=== PATIENT | female | born 1945 | race Caucasian/White ===

== ENCOUNTER 2017-05-12 13:31 | Observation (INO) | payer MEDICARE, SELFPAY ==
[2017-05-12 13:32] VITALS: BP 148/78; PULSE 83; RESP 16; TEMP 37.1; O2SAT 95; BMI 34.0
--- NOTE | 2017-05-12 13:58 | XR_ITS ---
XR chest portable HISTORY: ITS.REASON: CHEST PAIN ORDERING PHYSICIAN: Bryan Quintanilla MD PATIENT AGE: 71 years COMPARISON: 01/12/2017 FINDINGS: Mild cardiomegaly without failure. Chronic pulmonary parenchymal changes are once again noted. There is a small left pleural effusion. Increasing density is present in the left midlung suggesting increasing consolidation or volume loss in the lingula. Chest CT may be of further value. Right lung is clear. IMPRESSION: 1. Increasing consolidation/volume loss in the left midlung with persistent left-sided pleural effusion and/or elevated hemidiaphragm. Consider chest CT for more thorough evaluation. 2. Cardiomegaly.
--- NOTE | 2017-05-12 14:03 | HMH.EDGENADL ---
ED Disposition Clinical Impression: Chest pain, Cardiomegaly, Pleural effusion, left Disposition: Still a Patient Condition on Discharge: Good - Critical Care Critical Care Time: No Attestation: On , the high probability of a clinically significant, sudden or life threatening deterioration of the following system(s) required my full and direct attention, intervention and personal management. The time I documented below is in addition to time spent performing reported procedures but includes the following listed in this critical care notation. Medical Decision Making - Medical Records Medical records reviewed: Yes: I reviewed the patient's medical records. Vital Signs: 05/12/17 13:32 05/12/17 14:32 Temperature 98.7 F 98.5 F Temperature Source Oral Oral Pulse Rate [Left Brachial] 83 93 H Respiratory Rate 16 14 Blood Pressure [Right Arm] 148/78 111/69 Blood Pressure Mean [Right Arm] 101 83 Blood Pressure Source [Right Arm] Automatic Cuff Automatic Cuff Blood Pressure Position [Right Arm] Sitting Sitting 02 Sat by Pulse Oximetry 95 95 Oxygen Delivery Method Room Air Room Air - Lab Data Lab Results 05/12/17 13:50: WBC 14.1 H, RBC 4.34, Hgb 11.6 L, Hct 36.9 L, MCV 85.0, MCH 26.7 L, MCHC 31.4 L, RDW 14.7, Plt Count 393, MPV 7.7, Neut % (Auto) 71.7, Lymph % (Auto) 20.2, [place] % (Auto) 7.0, Eos % (Auto) 0.7, Baso % (Auto) 0.4, Neut # (Auto) 10.1 H, Lymph # (Auto) 2.9, [place] # (Auto) 1.0, Eos # (Auto) 0.1, Baso # (Auto) 0.1 05/12/17 13:50: Sodium 142, Potassium 3.6, Chloride 108 H, Carbon Dioxide 26, Anion Gap 11.6, BUN 13, Creatinine 0.75, Estimated Creat Clear 68, Estimated GFR 77, Est GFR ( Amer) 93, Glucose 106, Calcium 9.4, Total Bilirubin 0.2, AST 12 L, ALT 21, Alkaline Phosphatase 73, Total Creatine Kinase 47, CK-MB (CK-2) < 0.5, CK-MB (CK-2) Rel Index 1.1, Troponin I < 0.02, Total Protein 7.7, Albumin 2.7 L, Globulin 5.0 H, Albumin/Globulin Ratio 0.5 L 05/12/17 13:50: B-Natriuretic Peptide 112 H Result diagrams: 05/12/17 13:50 05/12/17 13:50 Orders (Tests/Meds): ED MEDICATIONS Generic Name Dose Route Start Last Admin Trade Name Nancie PRN Reason Stop Dose Admin Aspirin 81 mg 05/13/17 09:00 Aspirin 81mg Chewable Tablet PO 06/12/17 08:59 DAILY [facility] Atorvastatin Calcium 40 mg 05/12/17 21:00 Lipitor 40mg Tablet PO 06/11/17 20:59 HS MARY JANE Bisoprolol Fumarate 5 mg 05/13/17 09:00 Zebeta 5mg Tablet PO 06/12/17 08:59 DAILY MARY JANE Clopidogrel Bisulfate 75 mg 05/12/17 15:06 Plavix 75mg Tablet PO 05/12/17 15:07 ONCE ONE Sodium Chloride 1,000 mls @ 999 mls/hr 05/12/17 14:45 05/12/17 14:36 Sod Chloride 0.9% 1000ml Bag IV 05/12/17 15:45 999 mls/hr .Q1H1M MARY JANE Administration Lisinopril 20 mg 05/13/17 09:00 Zestril 20mg Tab PO 06/12/17 08:59 DAILY [facility] Nitroglycerin 0.5 gm 05/12/17 15:15 Nitroglycerin 1 Inch Oint Udp TD 06/11/17 15:14 Q6H MARY JANE Discontinued Medications Generic Name Dose Route Start Last Admin Trade Name Nancie PRN Reason Stop Dose Admin Belladonna Alkaloids 60 ml 05/12/17 14:30 05/12/17 14:36 Gi Cocktail 60ml Udc PO 05/12/17 14:31 60 ml ONCE ONE Administration Nitroglycerin 0.4 mg 05/12/17 14:18 05/12/17 14:19 Nitrostat 0.4mg Sl Tablet SL 05/12/17 14:19 0.4 mg ONCE ONE Administration Nitroglycerin 0.4 mg 05/12/17 14:30 05/12/17 14:36 Nitrostat 0.4mg Sl Tablet SL 05/12/17 14:31 0.4 mg ONCE ONE Administration - Radiology Data #1 Image(s): Chest Image Reviewed: Yes I reviewed the patient's radiology results, Yes I have reviewed radiologist's interpretation Preliminary Findings: Abnormal - ECG Data Tracing #1 Normal sinus rhythm 83/min possible [address] elevation in lead III and aVF in comparison to an EKG from December [address] Woods seeing the laundry pricing clerk presented and after evaluation obtained a stat echo and he determined
--- NOTE | 2017-05-12 14:10 | PC.NURSE ---
WAITING TREASURER FROM
--- NOTE | 2017-05-12 14:13 | PC.NURSE ---
SPEAKING WITH TESSIE ULLOA
--- NOTE | 2017-05-12 14:21 | PC.NURSE ---
KATHLEEN MURPHY AT BEDSIDE
--- NOTE | 2017-05-12 14:21 | PC.NURSE ---
CALLED AND ADVISED THEM TESSIE ULLOA REQUESTED ECHO ON PATIENT
[2017-05-12 14:24] LABS: Basophils # 0.1 K/mm3 (0-0.2); Basophils % 0.4 % (0.1-2.0); Eosinophils # 0.1 K/mm3 (0.0-0.4); Eosinophils % 0.7 % (0.1-12.0); Hematocrit 36.9 % (37.0-47.0); Hemoglobin 11.6 g/dL (12.2-16.2); Lymphocytes # 2.9 K/mm3 (0.7-4.5); Lymphocytes % 20.2 K/mm3 (10-50); Mean Corpuscular HGB Conc 31.4 g/dL (31.8-35.4); Mean Corpuscular Hemoglobin 26.7 pg (27.0-31.2); Mean Platelet Volume 7.7 fl (7.4-10.4); Neutrophils # 10.1 K/mm3 (1.8-7.8); Neutrophils % 71.7 % (37.0-80.0); Platelet Count 393 K/mm3 (142-424); Red Blood Count 4.34 M/mm3 (4.20-5.40); Red Cell Distribution Width 14.7 % (11.5-17.5); White Blood Count 14.1 K/mm3 (4.8-10.8)
--- NOTE | 2017-05-12 14:24 | CA_ITS ---
PROCEDURE: 2-D M-mode and color Doppler study INDICATIONS FOR THE TEST: Chest painx COPD Heart Murmur Tobacco Smokingx Palpitations Fatigue Syncope Edemax Hypertension Diabetes Mellitusx Rheumatic Fever [id number] Obesity Hyperlipidemiax Family History HD Additional History CAD PATIENT INFORMATION HEIGHT: 61'' WEIGHT: 180 GENDER: Female B/P:148/78 2-D/M-MODE INTERPRETATION: 2-D MEASUREMENTS OBSERVED VALUES IN CMS Right Ventricular Dimension (RVDd) 3.2 Interventricular Septum (Thickness)(IVsd) 2.2 Left Ventricular Internal Dimensions(LVIDd) 4.4 Left Ventricular Posterior Wall (Thickness)(LVPWd) 1.8 Aortic Root 3.3 Aortic Cusp Separation 1.6 Left Atrial Dimensions (LAD) 3.5 2D 1. Technically difficult study because of the patient's factor and poor acoustic windows. 2. Left atrium is mildly enlarged, left ventricle is normal size, there is moderate concentric left ventricular hypertrophy present, visually estimated ejection fraction 55% with no obvious regional wall motion abnormality, endocardial surfaces are poorly visualized. 3. The right atrium and right ventricle are mildly enlarged with normal contractility. 4. The aortic valve is minimally thickened and fibrosed. 5. The mitral and tricuspid valve leaflets are minimally thickened. 6. The pulmonic valve is poorly visualized. 7. No significant pericardial effusion noted. DOPPLER INTERROGATION: Doppler interrogation of the aortic, mitral and tricuspid valvular presence of mild mitral and tricuspid regurgitation, tricuspid and jet velocity is insufficient for calculation of the right ventricular systolic pressure, grade 1 diastolic dysfunction seen with tissue Doppler evidence of raised left atrial pressure. CONCLUSION: 1. Technically difficult study because of the patient's factor and poor acoustic windows. 2. Mildly enlarged left atrium, normal left ventricular size, moderate concentric left ventricular hypertrophy, visually estimated ejection fraction 55% with no obvious regional wall motion abnormality, endocardial surface of poorly visualized. Grade 1 diastolic dysfunction seen with tissue Doppler evidence of raised left atrial pressure. 3. Mild mitral and tricuspid regurgitation. 4. Mildly enlarged right ventricle with normal contractility. 5. No significant pericardial effusion noted.
[2017-05-12 14:32] VITALS: BP 111/69; PULSE 93; RESP 14; TEMP 36.9; O2SAT 95
[2017-05-12 14:34] LABS: Alanine Aminotransferase 21 U/L (12-78); Albumin Level 2.7 gm/dL (3.4-5.0); Albumin/Globulin Ratio 0.5 (1.1-1.8); Alkaline Phosphatase 73 U/L (46-116); Anion Gap 11.6 mEq/L (5-15); Aspartate Amino Transferase 12 U/L (15-37); Bilirubin,Total 0.2 mg/dL (0.2-1.0); Blood Urea Nitrogen 13 mg/dL (7-18); CKMB Relative Index 1.1 U/L (0-4.0); Calcium 9.4 mg/dL (8.5-10.1); Carbon Dioxide 26 mmol/L (21.0-32.0); Chloride 108 mmol/L (98-107); Creatine Kinase 47 U/L (26-192); Creatine Kinase MB < 0.5 mg/ml (0.0-3.6); Creatinine Clearance Estimated 68 mL/min (0-300); Creatinine,Serum 0.75 mg/dL (0.55-1.02); Estimated Glomerular Filt Rate 77 ml/min (>60); GFR (African American) 93 ML/MIN (>60); Glucose 106 mg/dL (74-106); Potassium 3.6 mmoL/L (3.5-5.1); Sodium 142 mmol/L (136-145); Total Protein,Serum 7.7 gm/dL (6.4-8.2); Troponin I < 0.02 ng/ml (0.00-0.06)
--- NOTE | 2017-05-12 14:55 | HMH.CARDCON2 ---
History of Present Illness Consult date: 05/12/17 Consult reason: chest pain Chief complaint: chest pain History of present illness: 71-year-old white female with known history of coronary artery disease and previous right coronary artery stent placed in June 2016 presented to the emergency department for 1 week of recurrent substernal chest pain and soreness with radiation to the left shoulder and arm. Patient has a history of fibromyalgia which complicates her clinical picture. She has been taking ibuprofen about 800 mg 3 times a day over the last week with symptoms worsening. She has a history of anemia, tobacco use, diabetes and hyperlipidemia. Patient's EKG upon arrival to the ER was noted to be slightly abnormal with slight ST elevation of less than 1 mm in the inferior leads but not consistently elevated from beat to beat. Radiology was consulted for evaluation. Patient was given sublingual nitroglycerin with some improvement in symptoms. A second sublingual nitroglycerin along with a GI cocktail was given with near resolution of symptoms. Preliminary echocardiogram performed in the ER shows normal wall motion abnormality official report is pending. Patient relates decreased activity recently with exertional shortness of breath on top of the chest discomfort. She has missed her last 2 appointments with our office. Her family doctor is Dr. Hoffman. Review of Systems - *Cardiovascular Reports chest pain, Reports chest pain at rest, Reports chest pain with activity, Reports shortness of breath with activity - *Respiratory Reports shortness of breath with activity - *Gastrointestinal Reports abdominal pain - *Genitourinary Reports blood in urine [facility] History Medical History: Reports:: Coronary Artery Disease, Diabetes Mellitus Type 2, Gastroesophageal Reflux Disease, Hyperlipidemia, Hypertension Denies:: Cancer, Diabetes Mellitus Type 1, MRSA Other Medical History: Reports: Arthritis Laterality Cases: Left: Lumpectomy Other Surgeries: Yes: Hysterectomy-Total, Other (Gallbladder, Bladder repair, ). No: Pacemaker Amputation: No Fractures: No - *Social History Smoking Status: Current every day smoker Tobacco Type: cigarettes # Packs/Day (cigarettes): 1 Alcohol Intake: never - Psychiatric History Expresses thoughts of harming self/others: None Suicide Plan Description: No Plan Meds Home Medications Medication Instructions Recorded Confirmed Type aspirin 81 mg tablet,delayed 81 mg PO QDAY 05/02/17 05/12/17 History release atorvastatin 40 mg tablet 40 mg PO QDAY 05/02/17 05/12/17 History bisoprolol fumarate 5 mg tablet 5 mg PO QDAY 05/02/17 05/12/17 History clopidogrel 75 mg tablet 75 mg PO QDAY 05/02/17 05/12/17 History duloxetine 60 mg capsule,delayed 60 mg PO QDAY 05/02/17 05/12/17 History release glyburide 5 mg tablet 5 mg PO QDAY 05/02/17 05/12/17 History lisinopril 20 mg tablet 20 mg PO QDAY 05/02/17 05/12/17 History omega-3 fatty acids 1,000 mg 1,000 mg PO QDAY 05/02/17 05/12/17 History capsule vitamin B complex tablet 1 tab PO QDAY 05/02/17 05/12/17 History Ascorbic Acid [Vitamin C] 1,000 mg PO DAILY 05/12/17 05/12/17 History Ergocalciferol (Vitamin D2) 400 unit PO DAILY 05/12/17 05/12/17 History [Vitamin D] Allergies Allergy/AdvReac Type Severity Reaction Status Date / Time No Known Allergies Allergy Verified 05/12/17 13:45 Exam Vital signs and Labs for Last 24 Hours: Temp Pulse Resp BP Pulse Ox 98.5 F 93 H 14 111/69 95 05/12/17 14:32 05/12/17 14:32 05/12/17 14:32 05/12/17 14:32 05/12/17 14:32 Laboratory Results - last 24 hr 05/12/17 13:50: WBC 14.1 H, RBC 4.34, Hgb 11.6 L, Hct 36.9 L, MCV 85.0, MCH 26.7 L, MCHC 31.4 L, RDW 14.7, Plt Count 393, MPV 7.7, Neut % (Auto) 71.7, Lymph % (Auto) 20.2, Mcdonald % (Auto) 7.0, Eos % (Auto) 0.7, Baso % (Auto) 0.4, Neut # (Auto) 10.1 H, Lymph # (Auto) 2.9, Mcdonald # (Auto) 1.0, Eos # (Auto) 0.1, Baso # (Auto) 0.1
--- NOTE | 2017-05-12 14:59 | P.CONS_ITS ---
History of Present Illness Consult date: 05/12/17 Consult reason: chest pain Chief complaint: chest pain History of present illness: 71-year-old white female with known history of coronary artery disease and previous right coronary artery stent placed in June 2016 presented to the emergency department for 1 week of recurrent substernal chest pain and soreness with radiation to the left shoulder and arm. Patient has a history of fibromyalgia which complicates her clinical picture. She has been taking ibuprofen about 800 mg 3 times a day over the last week with symptoms worsening. She has a history of anemia, tobacco use, diabetes and hyperlipidemia. Patient's EKG upon arrival to the ER was noted to be slightly abnormal with slight ST elevation of less than 1 mm in the inferior leads but not consistently elevated from beat to beat. Radiology was consulted for evaluation. Patient was given sublingual nitroglycerin with some improvement in symptoms. A second sublingual nitroglycerin along with a GI cocktail was given with near resolution of symptoms. Preliminary echocardiogram performed in the ER shows normal wall motion abnormality official report is pending. Patient relates decreased activity recently with exertional shortness of breath on top of the chest discomfort. She has missed her last 2 appointments with our office. Her family doctor is Dr. Hoffman. Review of Systems - *Cardiovascular Reports chest pain, Reports chest pain at rest, Reports chest pain with activity , Reports shortness of breath with activity - *Respiratory Reports shortness of breath with activity - *Gastrointestinal Reports abdominal pain - *Genitourinary Reports blood in urine [facility] History Medical History: Reports:: Coronary Artery Disease, Diabetes Mellitus Type 2, Gastroesophageal Reflux Disease, Hyperlipidemia, Hypertension Denies:: Cancer, Diabetes Mellitus Type 1, MRSA Other Medical History: Reports: Arthritis Laterality Cases: Left: Lumpectomy Other Surgeries: Yes: Hysterectomy-Total, Other (Gallbladder, Bladder repair, ) . No: Pacemaker Amputation: No Fractures: No - *Social History Smoking Status: Current every day smoker Tobacco Type: cigarettes # Packs/Day (cigarettes): 1 Alcohol Intake: never - Psychiatric History Expresses thoughts of harming self/others: None Suicide Plan Description: No Plan Meds Home Medications Medication Instructions Recorded Confirmed Type aspirin 81 mg tablet,delayed 81 mg PO QDAY 05/02/17 05/12/17 History release atorvastatin 40 mg tablet 40 mg PO QDAY 05/02/17 05/12/17 History bisoprolol fumarate 5 mg tablet 5 mg PO QDAY 05/02/17 05/12/17 History clopidogrel 75 mg tablet 75 mg PO QDAY 05/02/17 05/12/17 History duloxetine 60 mg capsule,delayed 60 mg PO QDAY 05/02/17 05/12/17 History release glyburide 5 mg tablet 5 mg PO QDAY 05/02/17 05/12/17 History lisinopril 20 mg tablet 20 mg PO QDAY 05/02/17 05/12/17 History omega-3 fatty acids 1,000 mg 1,000 mg PO QDAY 05/02/17 05/12/17 History capsule vitamin B complex tablet 1 tab PO QDAY 05/02/17 05/12/17 History Ascorbic Acid [Vitamin C] 1,000 mg PO DAILY 05/12/17 05/12/17 History Ergocalciferol (Vitamin D2) 400 unit PO DAILY 05/12/17 05/12/17 History [Vitamin D] Allergies Allergy/AdvReac Type Severity Reaction Status Date / Time No Known Allergies Allergy Verified 05/12/17 13:45 Exam Vital signs and Labs for Last 24 Hours:
[2017-05-12 17:00] VITALS: BP 108/54; PULSE 90; RESP 14; O2SAT 92
[2017-05-12 18:23] VITALS: BMI 34.7
[2017-05-12 18:33] VITALS: BP 118/54; PULSE 54; RESP 16; TEMP 37.2; O2SAT 98
--- NOTE | 2017-05-12 18:35 | PC.NURSE ---
PT CAME TO FLOOR VIA W/C. PT HAS NO COMPLAINTS AT THIS TIME, SITTING IN CHAIR IN ROOM. WILL CONTINUE TO MONITOR.
[2017-05-12 19:11] VITALS: BP 134/72; PULSE 97; RESP 20; TEMP 37.1; O2SAT 92
[2017-05-12 20:17] LABS: Troponin I < 0.02 ng/ml (0.00-0.06)
[2017-05-13] VITALS (11 sets, daily range): BP systolic 101–128; BP diastolic 62–76; PULSE 80–106; RESP 16–24; TEMP 36.6–37.3; O2SAT 93–96
--- NOTE | 2017-05-13 | IR_ITS ---
CARDIAC CATHETERIZATION DATE OF CATHETERIZATION:05/13/2017 10:34 AM PROCEDURES: 1. Left heart catheterization 2. Left ventriculogram 3. Selective coronary angiogram INDICATION FOR TEST: 1. Unstable angina 2. Acute care admission to the hospital for acute coronary syndrome Informed consent was obtained prior to the procedure. COMPLICATIONS: None ESTIMATED BLOOD LOSS: Less than 10 ml. TECHNIQUE: One percent lidocaine used to anesthetize the right anterior aspect of the wrist. The right radial artery was accessed via the Seldinger technique. A 6 Indonesian sheath was placed in the right radial artery. 2.5 mg of verapamil, 800 mcg of nitroglycerin and 5000 U Heparin were given through the arterial sheath. The trap catheter was also used to perform left heart catheterization and left ventriculography. At the end of the procedure the patient was transferred to the post-op holding area in stable condition for arterial sheath removal. ANGIOGRAPHIC RESULTS: 1. The left main artery normal 2. The left anterior descending artery has proximal 10% stenosis with mid vessel concentric 30% nonflow limiting stenoses 3. The circumflex artery is nondominant with mild luminal irregularities 4. The right coronary artery is a large dominant vessel and has mild vascular ectasia throughout the proximal mid and distal segment. There is no focal stenosis in the proximal or mid segment greater than 20%. Distally there is a 30% eccentric stenosis. Galdino current is identified distally due to the vascular ectasia 5. The BAIG ventriculogram reveals normal 65% 6. The left ventricular end-diastolic pressure elevated at 30 mmHg IMPRESSION: 1. Mild nonflow limiting coronary artery disease as described above 2. Clinically insignificant vascular ectasia 3. Normal ejection fraction 4. Moderate to severe elevated LVEDP consistent with diastolic dysfunction PLAN: 1. Medical management 2. Diuretics will benefit patient in order to decrease EDP 3. Risk factor modification
--- NOTE | 2017-05-13 00:22 | PC.NURSE ---
KATHLEEN KURTZ CALLED TO CHECK ON PT, ORDERS RECEIVED FOR NITORPASTE HALF INCH EVERY 6 HOURS.
--- NOTE | 2017-05-13 04:40 | PC.NURSE ---
PT WAS EXTREMELY RESTLESS, BECOME MORE SOB. CRACKLES NOTED ALL LOBES, FAINTLY. PLACED PT ON 2L PER NC DUE TO SATS BEING [address] PARRA, RECEIVED ORDERS FOR 40MG LASIX, O2, AND APPAREL CUTTER. NOTIFIED AT 2350. DIURESED 1,000ML PLUS ONE OUTPUT NOT MEASURED DUE TO PT MISSING SPEICI HAT. O2 SATS UP ABOVE 90 PERCENT. PT EVENTUALLY FELL OFF TO SLEEP. PT AWAKE THIS AM STATING SHE FELT MUCH BETTER. RESPIRATIONS EVEN AND UNLABORED ON RA. NSR ON TELEMETRY. PT KEPT NPO FOR HEART CATH TODAY.
--- NOTE | 2017-05-13 07:30 | P.CONPHA_ITS ---
[facility] Pharmacy VTE Monitoring - Patient Demographics Admission date: 05/12/17 Report Date: 05/13/17 Time: 07:29 Allergies/Adverse Reactions: No Known Allergies Allergy (Verified 05/12/17 13:45) Height: 1.55 m Weight: 82.667 kg Patient Problems: Current Active Problems Chest pain (Acute) Unstable angina pectoris (Acute) Carotid artery disease (Acute) Hypertension (Acute) Hyperlipidemia associated with type 2 diabetes mellitus (Acute) Tobacco use disorder, continuous (Acute) Anemia (Acute) Cardiomegaly (Acute) Pleural effusion, left (Acute) - VTE Risk Labs: VTE Related Lab Results Hgb 11.6 g/dL (12.2-16.2) L 05/12/17 13:50 Hct 36.9 % (37.0-47.0) L 05/12/17 13:50 Plt Count 393 K/mm3 (142-424) 05/12/17 13:50 BUN 13 mg/dL (7-18) 05/12/17 13:50 Creatinine 0.75 mg/dL (0.55-1.02) 05/12/17 13:50 Estimated Creat Clear 68 mL/min (0-300) 05/12/17 13:50 Was VTE Risk Assessment Performed: Yes VTE Risk Level: Very Low Risk - Prophylaxis VTE Prophylaxis Ordered?: Yes Types of VTE Prophylaxis: TEDS Knee High Location of Applied Device: Bilateral Lower Extremeties - VTE Diagnosis Confirmed Treatment or plan recommended: Continue Current Treatment
--- NOTE | 2017-05-13 08:14 | CT_ITS ---
CT chest wo con HISTORY: Increasing consolidation in the left mid lung with effusion, abnormal chest x-ray ITS.REASON: LLL infiltrate; pleural effusion ORDERING PHYSICIAN: Mehul Heredia MD PATIENT AGE: 71 years TECHNIQUE: Axial images obtained. Sagittal and coronal reformatted images are also generated and reviewed. CONTRAST: None COMPARISON: CT scan of 09/30/2016 FINDINGS: No evidence of aortic aneurysm. There are scattered small lymph nodes in the mediastinum. There is severe coronary artery calcification. There is mild thickening of the pericardium which is developed since a previous exam. There is a small left pleural effusion which is developed since the previous study. There is increasing opacification within the inferior aspect of the left upper lobe and the lingula suggesting increasing consolidation and/or volume loss. Pulmonary mass felt to be less likely based on appearance but not totally excluded bronchoscopy may be a for further evaluation. Mild centrilobular emphysematous changes are present. There are atelectatic changes in the lung bases. There is mild ectasia of the distal thoracic aorta. IMPRESSION: 1. Increasing opacification of the inferior aspect of the left upper lobe and in the lingula suggesting increasing consolidation and/or volume loss. Pulmonary mass not entirely excluded. Consider bronchoscopy for further evaluation. 2. Small left pleural effusion. 3. Centrilobular emphysema. 4. Coronary artery disease with thickening of the pericardium which has developed since the previous exam
--- NOTE | 2017-05-13 09:09 | HMH.HP ---
*Admission Date: 05/12/17 <Shana Carreon 05/13/17 09:20> *Chief complaint: chest pain and SOA <Shana Carreon 05/13/17 09:20> *History of present illness: Ms Du is a 71-year-old white female with known history of coronary artery disease and previous right coronary artery stent placed in June 2016 who presented to the emergency department for 1 week of recurrent substernal chest pain and soreness with radiation to the left shoulder and arm. Patient has a history of fibromyalgia which complicates her clinical picture. She has been taking ibuprofen about 800 mg 3 times a day over the last week with symptoms worsening. She has a history of anemia, tobacco use, diabetes and hyperlipidemia. Patient's EKG upon arrival to the ER was noted to be slightly abnormal with slight ST elevation of less than 1 mm in the inferior leads but not consistently elevated from beat to beat. Cardiology was consulted for evaluation. The patient was given sublingual nitroglycerin with some improvement in symptoms. She was given a GI cocktail as well and a dose of lasix. She states the lasix is what caused her CP and SOA to resolve. Her echocardiogram showed an EF of 55%. According to cardiology, she had missed her last 2 appointments with them. Her family doctor is Dr. Hoffman. This am she is feeling much better and her SOA and CP has resolved and not returned. She is scheduled for a heart cath today. <Shana Carreon 05/13/17 09:20> [facility] History Medical History: Reports:: Coronary Artery Disease, Diabetes Mellitus Type 2, Gastroesophageal Reflux Disease(GERD), Hyperlipidemia, Hypertension Denies:: Cancer, Diabetes Mellitus Type 1, MRSA <Shana Carreon 05/13/17 09:20> Other Medical History: Reports: Arthritis <Shana Carreon 05/13/17 09:20> Laterality Cases: Left: Lumpectomy <Shana Carreon 05/13/17 09:20> Other Surgeries: Yes: Hysterectomy-Total, Other (Gallbladder, Bladder repair, ). No: Pacemaker <Shana Carreon 05/13/17 09:20> Amputation: No <Shana Carreon 05/13/17 09:20> Fractures: No <Shana Carreon 05/13/17 09:20> - *Social History Smoking Status: Current every day smoker <VelmaShana 05/13/17 09:20> Tobacco Type: cigarettes <VelmaShana 05/13/17 09:20> # Packs/Day (cigarettes): 1 <Zhou Carreona 05/13/17 09:20> Alcohol Intake: never <Zhou Carreona 05/13/17 09:20> - Psychiatric History Expresses thoughts of harming self/others: None <Shana Carreon 05/13/17 09:20> Suicide Plan Description: No Plan <Shana Carreon 05/13/17 09:20> *Family Hx:: No significant family history <Shana Carreon 05/13/17 09:20> Review of Systems - Constitutional Reports fatigue, Reports lack of energy, Denies fever(s) <Shana Carreon 05/13/17 09:20> - Eyes Denies blurry vision, Denies double vision <Shana Carreon 05/13/17 09:20> - ENT Denies nasal congestion, Denies sore throat <Zhou Carreona 05/13/17 09:20> - *Cardiovascular Reports chest pain, Denies rapid, pounding, or irregular heartbeat <Zhou Carreona 05/13/17 09:20> - *Respiratory Reports cough, Reports shortness of breath <Zhou Carreona 05/13/17 09:20> - *Gastrointestinal Denies abdominal pain, Denies loose stools, Denies vomiting <Zhou Carreona 05/13/17 09:20> - *Genitourinary Denies difficulty urinating, Denies painful urination <Zhou Carreona 05/13/17 09:20> - *Musculoskeletal Denies back pain, Denies body aches <Zhou Carreona 05/13/17 09:20> - *Neurologic Denies dizziness, Denies headache(s), Denies tingling/numbness/burning sensations <Shana Carreon 05/13/17 09:20> Meds Home Medications Medication Instructions Recorded Confirmed Type aspirin 81 mg tablet,delayed 81 mg PO QDAY 05/02/17 05/13/17 History release atorvastatin 40 mg tablet 40 mg PO QDAY 05/02/17 05/13/17 History bisoprolol fumarate 5 mg tablet 5 mg PO QDAY 05/02/17 05/13/17 History clopidogrel 75 mg tablet 75 mg PO QDAY 05/02/17 05/13/17 His
--- NOTE | 2017-05-13 09:13 | P.HP_ITS ---
*Admission Date: 05/12/17 <Shana Carreon 05/13/17 09:20> *Chief complaint: chest pain and SOA <Shana Carreon 05/13/17 09:20> *History of present illness: Ms Du is a 71-year-old white female with known history of coronary artery disease and previous right coronary artery stent placed in June 2016 who presented to the emergency department for 1 week of recurrent substernal chest pain and soreness with radiation to the left shoulder and arm. Patient has a history of fibromyalgia which complicates her clinical picture. She has been taking ibuprofen about 800 mg 3 times a day over the last week with symptoms worsening. She has a history of anemia, tobacco use, diabetes and hyperlipidemia. Patient's EKG upon arrival to the ER was noted to be slightly abnormal with slight ST elevation of less than 1 mm in the inferior leads but not consistently elevated from beat to beat. Cardiology was consulted for evaluation. The patient was given sublingual nitroglycerin with some improvement in symptoms. She was given a GI cocktail as well and a dose of lasix. She states the lasix is what caused her CP and SOA to resolve. Her echocardiogram showed an EF of 55%. According to cardiology, she had missed her last 2 appointments with them. Her family doctor is Dr. Hoffman. This am she is feeling much better and her SOA and CP has resolved and not returned. She is scheduled for a heart cath today. <Shana Carreon 05/13/17 09:20> [facility] History Medical History: Reports:: Coronary Artery Disease, Diabetes Mellitus Type 2, Gastroesophageal Reflux Disease(GERD), Hyperlipidemia, Hypertension Denies:: Cancer, Diabetes Mellitus Type 1, MRSA <Shana Carreon 05/13/17 09:20> Other Medical History: Reports: Arthritis <Shana Carreon 05/13/17 09:20> Laterality Cases: Left: Lumpectomy <Shana Carreon 05/13/17 09:20> Other Surgeries: Yes: Hysterectomy-Total, Other (Gallbladder, Bladder repair, ) . No: Pacemaker <Shana Carreon 05/13/17 09:20> Amputation: No <Shana Carreon 05/13/17 09:20> Fractures: No <Shana Carreon - 01/12/18 09:20> - *Social History Smoking Status: Current every day smoker <VelmaShana 05/13/17 09:20> Tobacco Type: cigarettes <Zhou Carreona 05/13/17 09:20> # Packs/Day (cigarettes): 1 <Zhou Carreona 05/13/17 09:20> Alcohol Intake: never <Zhou Carreona 05/13/17 09:20> - Psychiatric History Expresses thoughts of harming self/others: None <Shana Carreon 05/13/17 09: 20> Suicide Plan Description: No Plan <Shana Carreon 05/13/17 09:20> *Family Hx:: No significant family history <Shana Carreon 05/13/17 09:20> Review of Systems - Constitutional Reports fatigue, Reports lack of energy, Denies fever(s) <Shana Carreon 04/18 09:20> - Eyes Denies blurry vision, Denies double vision <Shana Carreon 05/13/17 09:20> - ENT Denies nasal congestion, Denies sore throat <Zhou Carreona 05/13/17 09:20> - *Cardiovascular Reports chest pain, Denies rapid, pounding, or irregular heartbeat <Shana Carreon 05/13/17 09:20> - *Respiratory Reports cough, Reports shortness of breath <Shana Carreon 05/13/17 09:20> - *Gastrointestinal Denies abdominal pain, Denies loose stools, Denies vomiting <Shana Carreon 05/13/17 09:20> - *Genitourinary Denies difficulty urinating, Denies painful urination <[facility] 09[facility]> - *Musculoskeletal Denies back pain, Denies body aches <Shana Carreon 05/13/17 09:20> - *Neurologic Denies dizziness, Denies headache(s), Denies tingling/numbness/burning sensations <Shana Carreon 05/13/17 09:20> Meds Home Medications
--- NOTE | 2017-05-13 11:51 | SUR.PHASEII ---
1100-REPORT CALLED TO MICHAEL RN , PATIENT ALERT AND ORIENTED WITH NO C/O PAIN, RIGHT WRIST IS CDI WITH TRACELET IN PLACE.
--- NOTE | 2017-05-13 12:53 | HMH.DCSUM ---
General - General Admission date: 05/12/17 <Mehul Heredia - 05/13/17 13:00> Discharge date: 05/13/17 <VelmaShana - 05/16/17 21:37> HPI HPI: Ms Du is a 71-year-old white female with known history of coronary artery disease and previous right coronary artery stent placed in June 2016 who presented to the emergency department for 1 week of recurrent substernal chest pain and soreness with radiation to the left shoulder and arm. Patient has a history of fibromyalgia which complicates her clinical picture. She has been taking ibuprofen about 800 mg 3 times a day over the last week with symptoms worsening. She has a history of anemia, tobacco use, diabetes and hyperlipidemia. Patient's EKG upon arrival to the ER was noted to be slightly abnormal with slight ST elevation of less than 1 mm in the inferior leads but not consistently elevated from beat to beat. Cardiology was consulted for evaluation. The patient was given sublingual nitroglycerin with some improvement in symptoms. She was given a GI cocktail as well and a dose of lasix. She states the lasix is what caused her CP and SOA to resolve. Her echocardiogram showed an EF of 55%. According to cardiology, she had missed her last 2 appointments with them. Her family doctor is Dr. Hoffman. This am she is feeling much better and her SOA and CP has resolved and not returned. She is scheduled for a heart cath today. <Mehul Heredia - 05/13/17 13:00> Objective Vital signs: Temp Pulse Resp BP Pulse Ox 98 F 88 20 119/76 94 L 05/13/17 10:35 05/13/17 12:00 05/13/17 11:31 05/13/17 11:31 05/13/17 11:00 <CirilomeetShana - 05/16/17 21:37> Temp Pulse Resp BP Pulse Ox 98 F 91 H 20 119/76 94 L 05/13/17 10:35 05/13/17 11:31 05/13/17 11:31 05/13/17 11:31 05/13/17 11:00 <Mehul Heredia - 05/13/17 13:00> Narrative: - Constitutional no acute distress - *Routine HEENT Exam Head: Present: normocephalic, atraumatic Eye: Present: EOMI ENT: Present: mucous membranes dry - *Routine Neck Exam Present: supple, full ROM - *Routine Respiratory Exam Present: wheezes (faint), crackles (left base) - *Routine Cardiovascular Exam Present: RRR - *Routine Abdominal Exam Present: soft, normoactive bowel sounds. Absent: tenderness - *Routine Extremities Exam Absent: edema - *Routine Skin Exam Present: intact - *Routine Neurological Exam Present: alert, oriented X3 <Shana Carreon - 05/16/17 21:37> Hospital Course Hospital Course: She had a CXR showing increasing consolidation/volume loss in the left midlung with persistent left-sided pleural effusion and/or elevated hemidiaphragm. A CT of the chest was ordered. Heart cath reported as showing no significant coronary stenosis. Patient felt much better with no SOA and her chest pain resolved. CT of chest showed some progressive volume loss in left lung with small pleural effusion. She was eager to go home. Dr. Womack advised continuing on Lasix 20mg qd as outpt and he will see patient in f/u in 1 week. <Shana Carreon - 05/16/17 21:37> Results Labs on day of discharge: Labs from last 24 hours 05/12/17 19:49 Troponin I < 0.02 <Mehul Heredia - 05/13/17 13:00> DS: Diagnosis - Discharge Diagnosis (1) Chest pain Status: Acute (2) Pleural effusion, left Status: Acute (3) Anemia Status: Acute (4) Cardiomegaly Status: Acute (5) Carotid artery disease Status: Acute (6) Hyperlipidemia associated with type 2 diabetes mellitus Status: Acute (7) Hypertension Status: Acute (8) Tobacco use disorder, continuous Status: Acute <Shana Carreon - 05/16/17 21:37> (1) History of ASCVD (2) Pulmonary atelectasis (3) Chest pain (4) Hypertension (5) Pleural effusion, left (6) Tobacco use disorder, continuous <Mehul Heredia - 05/13/17 12:53> Meds Ho
--- NOTE | 2017-05-13 12:59 | P.DS_ITS ---
General - General Admission date: 05/12/17 <Mehul Heredia - 05/13/17 13:00> Discharge date: 05/13/17 <VelmaShana - 05/16/17 21:37> HPI HPI: Ms Du is a 71-year-old white female with known history of coronary artery disease and previous right coronary artery stent placed in June 2016 who presented to the emergency department for 1 week of recurrent substernal chest pain and soreness with radiation to the left shoulder and arm. Patient has a history of fibromyalgia which complicates her clinical picture. She has been taking ibuprofen about 800 mg 3 times a day over the last week with symptoms worsening. She has a history of anemia, tobacco use, diabetes and hyperlipidemia. Patient's EKG upon arrival to the ER was noted to be slightly abnormal with slight ST elevation of less than 1 mm in the inferior leads but not consistently elevated from beat to beat. Cardiology was consulted for evaluation. The patient was given sublingual nitroglycerin with some improvement in symptoms. She was given a GI cocktail as well and a dose of lasix. She states the lasix is what caused her CP and SOA to resolve. Her echocardiogram showed an EF of 55%. According to cardiology, she had missed her last 2 appointments with them. Her family doctor is Dr. Hoffman. This am she is feeling much better and her SOA and CP has resolved and not returned. She is scheduled for a heart cath today. <Mehul Heredia - 05/13/17 13:00> Objective Vital signs: Temp Pulse Resp BP Pulse Ox 98 F 88 20 119/76 94 L 05/13/17 10:35 05/13/17 12:00 05/13/17 11:31 05/13/17 11:31 05/13/17 11:00 <CirilomeetShana - 05/16/17 21:37> Temp Pulse Resp BP Pulse Ox 98 F 91 H 20 119/76 94 L 05/13/17 10:35 05/13/17 11:31 05/13/17 11:31 05/13/17 11:31 05/13/17 11:00 <Mehul Heredia - 05/13/17 13:00> Narrative: - Constitutional no acute distress - *Routine HEENT Exam Head: Present: normocephalic, atraumatic Eye: Present: EOMI ENT: Present: mucous membranes dry - *Routine Neck Exam Present: supple, full ROM - *Routine Respiratory Exam Present: wheezes (faint), crackles (left base) - *Routine Cardiovascular Exam Present: RRR - *Routine Abdominal Exam Present: soft, normoactive bowel sounds. Absent: tenderness - *Routine Extremities Exam Absent: edema - *Routine Skin Exam Present: intact - *Routine Neurological Exam Present: alert, oriented X3 <Shana Carreon - 05/16/17 21:37> Hospital Course Hospital Course: She had a CXR showing increasing consolidation/volume loss in the left midlung with persistent left-sided pleural effusion and/or elevated hemidiaphragm. A CT of the chest was ordered. Heart cath reported as showing no significant coronary stenosis. Patient felt much better with no SOA and her chest pain resolved. CT of chest showed some progressive volume loss in left lung with small pleural effusion. She was eager to go home. Dr. Womack advised continuing on Lasix 20mg qd as outpt and he will see patient in f/u in 1 week. <Shana Carreon - 05/16/17 21:37> Results Labs on day of discharge: Labs from last 24 hours 05/12/17 19:49 Troponin I < 0.02 <Mehul Heredia - 05/13/17 13:00> DS: Diagnosis - Discharge Diagnosis (1) Chest pain Status: Acute (2) Pleural effusion, left Status: Acute (3) Anemia Status:
--- NOTE | 2017-05-13 16:37 | HMH.ACPN ---
Internal Medicine - PN: Subj *Date: 05/13/17 *Time: 16:37 Interval history: F/U NOTE: Heart cath reported as showing no significant coronary stenosis. Patient feels much better with no SOA and chest pain has resolved. CT of chest shows some progressive volume loss in left lung with small pleural effusion. She is eager to go home. Dr. Womack has advised continuing on Lasix 20mg qd as outpt and will see patient in f/u in 1 week. Exam Vital signs and Labs for Last 24 Hours: Temp Pulse Resp BP Pulse Ox 98 F 91 H 20 119/76 94 L 05/13/17 10:35 05/13/17 11:31 05/13/17 11:31 05/13/17 11:31 05/13/17 11:00 Laboratory Results - last 24 hr 05/12/17 19:49: Troponin I < 0.02 I & O for Last 24 hours: Intake & Output 05/11/17 05/12/17 05/13/17 05/14/17 11:59 11:59 11:59 11:59 Intake Total 800 / 800 480 / 480 Output Total 100 / 100 Balance 700 / 700 480 / 480 Weight 182 lb 4 oz Assessment and Plan (1) History of ASCVD Status: Acute Category: Medical Code(s): Z86.79 - Personal history of other diseases of the circulatory system (2) Pulmonary atelectasis Status: Acute Category: Medical Code(s): J98.11 - Atelectasis (3) Chest pain Status: Acute Category: Medical Code(s): R07.9 - Chest pain, unspecified (4) Hypertension Status: Acute Category: Medical Code(s): I10 - Essential (primary) hypertension (5) Pleural effusion, left Status: Acute Category: Medical Code(s): J90 - Pleural effusion, not elsewhere classified (6) Tobacco use disorder, continuous Status: Acute Category: Medical Code(s): F17.209 - Nicotine dependence, unspecified, with unspecified nicotine-induced disorders - Assessment and plan all Dx Assessment and Plan for all problems:: SHe is advised to f/u with her PCP, Dr. Hoffman within the next 1-2 weeks regarding her pulmonary issues. May need pulmonology referral for bronchoscopy.
--- NOTE | 2017-05-19 10:49 | PC.NURSE ---
post procedure call made, pt did not answer and unable to leave voicemail
== END 2017-05-13 14:55 | disposition home or self-care (01) ==
LOC: ER 15:19 → 2ND 17:40
PROVIDERS: Internal Medicine; Admitting Provider Family Medicine; Emergency Provider Emergency Medicine; Visit Provider Family Medicine
DX: I25.110 Atherosclerotic heart disease of native coronary artery with unstable angina pectoris (principal); Z95.5 Presence of coronary angioplasty implant and graft; Z72.0 Tobacco use; E11.9 Type 2 diabetes mellitus without complications; I11.9 Hypertensive heart disease without heart failure; J90 Pleural effusion, not elsewhere classified
CPT/HCPCS: 71045; 71250; 80053; 82550; 82553; 83880; 84484; 85025; 93005; 93041; 93306; 93458; 99152; 99283; C1725; C1769; G0378; J0456; J1644; Q9967

== ENCOUNTER → 2017-06-20 12:03 | Outpatient (CLI) | payer MEDICARE, SELFPAY ==
--- NOTE | 2017-06-20 12:11 | XR_ITS ---
XR cervical spine 5V Ordering Physician: Shantell Hoffman Patient Age: 71 years: Female HISTORY: ITS.REASON: NECK PAIN,SHOULDER PAIN TECHNIQUE: Five-view cervical spine series Shoulder pain bilateral shoulder pain. No injury COMPARISON :. No previous C-spine studies.. FINDINGS The cervical vertebral bodies are intact and disc spaces are generous well-maintained only borderline narrowing at C5-C6. Normal alignment with no fracture nor subluxation prevertebral soft tissues normal. Prior degenerative facet changes bilaterally along with early uncovertebral joint hypertrophy. On the LEFT note generous facet hypertrophy/arthropathy at C3/4 and C5-C6 levels. Notably Encroach upon the neural left neural foramen at these levels. Only minor uncovertebral joint hypertrophy and spurring seen at left foramen at C3/4, C4/C5 , &-C5 /C6.. most pronounced foraminal encroachment to the left at C5/6-mainly due to the facet hypertrophy On the RIGHT, facet hypertrophy and arthropathy encroach upon the right foramen at C4/5 & less evident evident at C3/4. Developing Uncovertebral joint spurring and hypertrophy is most evident to the right at C4/5 & C3/4 . Mild/moderate foraminal encroachment to the right at these levels. Apices the lungs are clear. C1-C2 relationships normal. Calcification left carotid bifurcation. IMPRESSION degenerative changes C-spine 1. Hypertrophic facet changes bilaterally, along with early degenerative spurring upper C-spine, yield encroachment neural foramen bilaterally upper C-spine.. Most prominent facet hypertrophy LEFT at C 3/4 and C5/6., & RIGHT at C 3/4 C4/5. . Also uncovertebral joint hypertrophy bilaterally C3/4, C4/5 and to the left at C5-C6
--- NOTE | 2017-06-20 12:14 | XR_ITS ---
XR shoulder RT min 2V, XR shoulder LT min 2V Ordering Physician: Shantell Hoffman Patient Age: 71 years: Female HISTORY: ITS.REASON: NECK AND SHOULDER PAIN TECHNIQUE: 3 views right shoulder 3 views left shoulder COMPARISON :Portable chest May [address] chest from 2017 September & May 2017 RIGHT SHOULDER 3 views: Developing degenerative changes at the glenohumeral joint. Joint space is fairly well maintained but there is Hypertrophic lipping about the glenoid most evident inferiorly. Hypertrophic Ridging most evident from the inferior aspect the humeral head. Mild AC joint arthropathy and hypertrophy. No acute fracture or subluxation Small cystic area likely subchondral cyst is seen at the posterior margin of humeral head. But slightly more apparent than on 2017 chest film but likely reflect degenerative process. Suggestive diffuse chronic changes throughout the lungs LEFT SHOULDER 3 views.: Glenohumeral joint is fairly well maintained but there is some mild sclerosis at the margin of the glenoid inferior margin of humeral head reflecting early degenerative changes. AC joint intact. Normal relationships at glenohumeral joint. Left lung apex clear . Degenerative changes lower C-spine noted specifically C5-C6 facet and hypertrophy ------IMPRESSION: 1. Mild early hypertrophic degenerative changes slightly more evident the right glenohumeral joint than left 2. The glenohumeral joint spaces are fairly well-maintained bilaterally. 3. Small degenerative cyst at posterior right humeral head slightly more apparent than 2017 available studies 4 chronic changes of lungs bilaterally
== END ==
PROVIDERS: PCP Family Medicine; Visit Provider Family Medicine
DX: M54.2 Cervicalgia (principal); M25.511 Pain in right shoulder; M25.512 Pain in left shoulder
CPT/HCPCS: 72050; 73030

== ENCOUNTER → 2017-08-05 07:32 | Outpatient (CLI) | payer MEDICARE, SELFPAY ==
--- NOTE | 2017-08-05 07:34 | MR_ITS ---
MR shoulder LT wo con Ordering Physician: Ortega Madeleine Patient Age: 71 years: Female HISTORY: ITS.REASON: PAIN IN LEFT SHOULDER Bilateral shoulder pain trauma with reaching behind back range of motion trouble sleeping at night due to pain. Symptoms 3 months TECHNIQUE: Multiplanar multisequence imaging 1.5T MR MRI left shoulder COMPARISON :MRI right shoulder from today plain films left shoulder June 20, 2017 FINDINGS Abnormal thickened rotator cuff with increased signal. Prominent thickening & increased signal seen at undersurface of supraspinatus tendon as well as undersurface of the infraspinatus tendon. Most likely this reflects a prominent severe chronic tendinopathy which which is markedly thickened thickened the rotator cuff through this region. Likely associated partial undersurface tear involving supraspinatus & infraspinatus... The supraspinatus and infraspinatus tendon demonstrates prominent thickening - measure over 8 mm thickness. Likely small limited full-thickness tear involving the anterior aspect the anterior supraspinatus tendon. This likely gives rise to the minimal fluid at subdeltoid subacromial bursa.. . The superior fibers of the infraspinatus are better seen and appear to remain intact with only undersurface tear at infraspinatus tendon Prominent Biceps tendinopathy. Prominent thickening with increased signal within the biceps tendon just above the bicipital groove continue into the biceps anchor. This intrasubstance signal may reflect a interstitial, intrasubstance tear in addition to tendinopathy. However there is a rupture or transection of the biceps appreciated. This is best seen on sagittal image 10, 9 Large joint effusion with what appear to be some filling defects within the subcoracoid recess. Possible loose bodies or synovial osteochondromas. Degenerative changes at the glenoid and glenohumeral joint. Slight narrowing at this joint. Subchondral cystic changes about the margin of the glenoid. . Anterior labrum has slight variant signal reflecting degenerative changes here.. Initially question minor tear . The posterior horn is small degenerated blunted but not grossly torn which.. There are multiple subchondral cystic feature seen anterior and beneath posterior horn. subchondral cystic changes at the superior glenoid. There seems to be the region of the biceps anchor and abnormal biceps tendon.. Coronal image 13, and 11 mild thickening inferior joint capsule. It subscapularis. Tendon intact but there is some inflammation seen at the anterior mandible in part related to the inflamed appearing biceps tendon. IMPRESSION: 1. Severe Rotator cuff tendinopathy Marked dramatic thickening of supraspinatus & infraspinatus tendon. Prominent increased signal along the inferior aspect reflecting likely Prominent Chronic Tendinopathy , I suspect with likely granulation tissue associated. Likely associated undersurface partial tears at both supraspinatus and infraspinatus tendons. There may be a small full-thickness tear along anterior margin of supraspinatus contributing to minimal fluid at subdeltoid subacromial bursa . No prominent tendon retraction 2. Prominent Biceps tendinopathy. Prominent thickening with increased signal throughout the biceps tendon superior to the bicipital groove & continuing to the biceps anchor.. Possible interstitial tear contributing to this appearance 3. Generous Joint effusion with some ill-defined densities within this joint effusion particularly evident subcoracoid bursa region. 4. Degenerative changes glenohumeral joint. Numerous subchondral cystic features about the margin of the glenoid. Slight narrowing of this joint with mild irregularities and anterior posterior labrum, likely degenerative in jovanny
--- NOTE | 2017-08-05 07:34 | MR_ITS ---
MR shoulder RT wo con Ordering Physician: Ortega Madeleine Patient Age: 71 years: Female HISTORY: ITS.REASON: PAIN IN RIGHT SHOULDER Right shoulder pain and limited range of motion. Symptoms 3 months TECHNIQUE: Multiplanar multisequence imaging 1.5 to MR COMPARISON :MR of the opposite shoulder same day FINDINGS Findings Similar to the opposite shoulder MRI performed today, in that there is a abnormal thickened rotator cuff with increased signal throughout. This appears I suspect reflects a prominent chronic tendinopathy involving the supraspinatus tendon as well as the infraspinatus tendon. Abnormal signal is seen at the mid substance and most pronounced along undersurface of these tendons. Appearance most likely reflecting a severe chronic tendinopathy with suspect associated granulation tissue. As stated the majority of signal abnormality along the undersurface and mid substance within superior fibers of the supraspinatus tendon as well as infraspinatus seeming to remain for the most part intact] preventing a large full-thickness tear defect or retraction.. However on some of the more sensitive images is difficult to exclude a small full-thickness component at supraspinatus. However The relative lack fluid at subdeltoid subacromial bursa tend to speak again a prominent full-thickness component Increased signal is seen throughout the biceps tendon superior to the bicipital groove but it does not appear to be is enlarged or inflamed here on the right as it did on the left. The subscapularis tendon appears intact with only some mild tendinopathy at its superior margin. Joint effusion appears smaller here on the right. Only minimal Minimal fluid extends . The degenerative changes at the glenohumeral joint are more pronounced here at the right shoulder. Narrowing of the posterior glenohumeral joint particular evident. Numerous subchondral cystic changes about the margin the glenoid particularly evident throughout the base of the anterior labrum. But warrant a larger subchondral cyst measuring 8 mm x 10 mm anterior superior glenoid labrum beneath the anterior labrum.... This cystic feature extends to the base of coracoid. There is degeneration with likely fraying throughout anterior labrum.. Additional suspicion of anterior labral tear at the anterior inferior labrum. . The posterior labrum seem to be more intact and maintained. Mild AC joint arthropathy.l neutral acromion. Modest but Adequate subacromial space 8 mm the acromion. IMPRESSION== 1. Markedly thickened superior rotator cuff with prominent abnormal signal Likely reflects chronic tendinopathy most pronounced at the infraspinatus tendon>supraspinatus tendon Abnormal signal mainly involving intrasubstance & inferior surface. Superior fibers of infraspinatus and supraspinatus for the most part remain intact with only question of possible small full-thickness tear. Lack of fluid at subdeltoid subacromial bursa tend to speak against the latter . 2. Biceps tendinopathy. Less pronounced on right shoulder the left 3. Joint effusion. Small right shoulder than left q 4. Degenerative changes glenohumeral joint . Narrowed glenohumeral joint most notable posteriorly. Prominent subchondral cystic changes and irregularities about the joint. 5. Degeneration anterior labrum with Suspect anterior inferior labral tear
== END ==
PROVIDERS: PCP Family Medicine; Visit Provider Orthopaedic Surgery
DX: M25.511 Pain in right shoulder (principal); M25.512 Pain in left shoulder
CPT/HCPCS: 73221

== ENCOUNTER 2017-09-02 13:00 | Outpatient (RCR) | payer MEDICARE, SELFPAY | END 2017-09-02 13:01 | disposition home or self-care (01) | LOC: PT 13:00 | PROVIDERS: PCP Family Medicine; Visit Provider Orthopaedic Surgery | DX: M25.511 Pain in right shoulder (principal); M25.512 Pain in left shoulder | CPT/HCPCS: 97010; 97014; 97110; 97163; G0283 ==

== ENCOUNTER → 2017-11-08 08:07 | Outpatient (CLI) | payer MEDICARE, SELFPAY ==
[2017-11-08 09:00] LABS: Alanine Aminotransferase 23 U/L (12-78); Albumin Level 3.5 gm/dL (3.4-5.0); Alkaline Phosphatase 84 U/L (46-116); Aspartate Amino Transferase 15 U/L (15-37); Bilirubin,Direct 0.1 mg/dL (0.0-0.2); Bilirubin,Indirect 0.1 mg/dL (0.0-0.9); Bilirubin,Total 0.2 mg/dL (0.2-1.0); Chol/HDL Ratio 3.9 (1-3.5); Cholesterol 131 mg/dL (140-200); HDL Cholesterol 34 mg/dL (29-89); LDL Cholesterol 66 mg/dL (0-130); Total Protein,Serum 7.1 gm/dL (6.4-8.2); Triglycerides 154 mg/dL (30-200); VLDL Cholesterol 31 mg/dL (0-40)
== END ==
PROVIDERS: PCP Family Medicine; Visit Provider Internal Medicine
DX: E78.5 Hyperlipidemia, unspecified (principal); I25.10 Atherosclerotic heart disease of native coronary artery without angina pectoris; I10 Essential (primary) hypertension
CPT/HCPCS: 36415; 80061; 80076

== ENCOUNTER → 2019-02-27 10:17 | Outpatient (CLI) | payer MEDICARE, SELFPAY ==
[2019-02-27 10:30] LABS: Basophils % 0.4 % (0.1-2.0); Eosinophils # 0.1 K/mm3 (0.0-0.4); Eosinophils % 1.2 % (0.1-12.0); Hematocrit 42.5 % (37.0-47.0); Hemoglobin 13.8 g/dL (12.2-16.2); Lymphocytes # 1.8 K/mm3 (0.7-4.5); Lymphocytes % 22.1 % (10-50); Mean Corpuscular HGB Conc 32.4 g/dL (31.8-35.4); Mean Corpuscular Hemoglobin 33.6 pg (27.0-31.2); Mean Corpuscular Volume 103.8 fl (81-99); Mean Platelet Volume 8.5 fl (7.4-10.4); Monocytes # 0.3 K/mm3 (0.1-1.0); Monocytes % 3.2 % (1.7-9.3); Neutrophils # 5.9 K/mm3 (1.8-7.8); Neutrophils % 73.1 % (37.0-80.0); Platelet Count 232 K/mm3 (142-424); Red Blood Count 4.09 M/mm3 (4.20-5.40); Red Cell Distribution Width 13.4 % (11.5-17.5)
[2019-02-27 11:44] LABS: Alanine Aminotransferase 22 U/L (12-78); Albumin Level 3.4 gm/dL (3.4-5.0); Alkaline Phosphatase 66 U/L (46-116); Anion Gap 14.7 mEq/L (5-15); Aspartate Amino Transferase 16 U/L (15-37); Bilirubin,Direct 0.1 mg/dL (0.0-0.2); Bilirubin,Indirect 0.2 mg/dL (0.0-0.9); Bilirubin,Total 0.3 mg/dL (0.2-1.0); Blood Urea Nitrogen 20 mg/dL (7-18); Calcium 9.3 mg/dL (8.5-10.1); Carbon Dioxide 27 mmol/L (21.0-32.0); Chloride 103 mmol/L (98-107); Chol/HDL Ratio 3.9 (1-3.5); Cholesterol 149 mg/dL (140-200); Creatinine,Serum 0.81 mg/dL (0.55-1.02); Estimated Glomerular Filt Rate 70 ml/min (>60); Free T4 (Free Thyroxine) 0.74 ng/dl (0.76-1.46); GFR (African American) 84 ML/MIN (>60); Glucose 277 mg/dL (74-106); HDL Cholesterol 38 mg/dL (29-89); LDL Cholesterol 52 mg/dL (0-130); Potassium 3.7 mmoL/L (3.5-5.1); Sodium 141 mmol/L (136-145); Total Protein,Serum 6.9 gm/dL (6.4-8.2); Triglycerides 297 mg/dL (30-200); VLDL Cholesterol 59 mg/dL (0-40)
== END ==
PROVIDERS: Visit Provider Physician Assistant
DX: E11.69 Type 2 diabetes mellitus with other specified complication (principal); E78.5 Hyperlipidemia, unspecified; F17.209 Nicotine dependence, unspecified, with unspecified nicotine-induced disorders; I25.10 Atherosclerotic heart disease of native coronary artery without angina pectoris; I51.7 Cardiomegaly; I51.9 Heart disease, unspecified; R07.9 Chest pain, unspecified; D64.9 Anemia, unspecified; Z79.84 Long term (current) use of oral hypoglycemic drugs
CPT/HCPCS: 36415; 80048; 80061; 80076; 84439; 84443; 85025

== ENCOUNTER → 2020-12-11 12:49 | Outpatient (CLI) | payer MEDICARE, SELFPAY ==
--- NOTE | 2020-12-11 12:52 | CA_ITS ---
APPROVED REPORT EXAM: Comprehensive 2D, Doppler, and color-flow Echocardiogram Biomedical Engineering Professor: Maia Whiting RVT Ht: 5 ft 2 in Wt: 175lbs BSA: 1.81 BP: 110/54 mmHg Indications: PRE-OP,CAD,DD,GERD,CP,DM,SMOKER,HTN,HLD,LOWERY TDS 2D Dimensions LVOT 2.06 cm (M/F) 1.5-2.5 LA Volume 19.40 mL LA Volume Index 10.77 mL/m2 (M/F) 16-34 M-Mode Dimensions RVDd 3.05 cm (0.9-2.6) LA Diam 3.39 cm (1.9-4.0) LVDd 5.14 cm (3.5-5.7) Ao Diam 3.09 cm (2.0-3.7) LVDs 3.49 cm (3.5-5.7) IVSd 1.04 cm (0.6-1.1) PWd 0.92 cm (0.6-1.1) EF (Teich) 60.00% FS 32.10% EDV (Teich) 126.10 mL TAPSE 1.72 (<1.7) ESV (Teich) 50.50 mL LV Diastology E Decel Time 180.00 (160-240 msec) E/A Ratio 0.9 MED E' 4.70 (< 7 cm/sec) E'/MED E' Ratio 21.30 (>14) LAT E' 7.80 (<10 cm/sec) E/LAT E' Ratio 12.83 (>14) Aortic Valve AO Peak GR. 8.20 mmHg Mitral Valve MV E Max Enio. 100.00 (40-130 cm/s) MV A Velocity 107.00 (40-130 cm/s) E/A Ratio 0.94 MV Decel. Time 180.00 (160-240 ms) MV PHT 53.00 ms Pulmonary Valve PV Peak Velocity 77.00 (50-150 cm/s) Tricuspid Valve TR P. Velocity 179.00 cm/s RAP Estimate 10.00 mmHg RVSP 22.80 mmHg Left Ventricle Left atrium is mildly enlarged, left ventricle is normal size, mild concentric left ventricular hypertrophy, visually estimated ejection fraction 55% with no regional wall motion abnormality, grade 1 diastolic dysfunction seen without tissue Doppler evidence of raise left atrial pressure. Right Ventricle Right atrium and right ventricle are mildly enlarged with normal contractility. Aortic Valve Aortic valve is minimally thickened and fibrosed, there is no aortic stenosis or aortic insufficiency. Mitral Valve Mitral valve is grossly normal, there is mild mitral regurgitation. Tricuspid Valve Tricuspid grossly normal, there is mild tricuspid regurgitation, tricuspid regurgitation jet velocity is inadequate for calculation of the right ventricular systolic pressure. Pulmonic Valve Pulmonic valve is poorly visualized. Great Vessels Aortic root is normal size. Pericardium No significant pericardial effusion noted. Conclusion 1. Mild biatrial enlargement, normal left ventricular size, mild concentric left ventricular hypertrophy, visually estimated ejection fraction 55% with no regional wall motion abnormality, grade 1 diastolic dysfunction seen without tissue Doppler evidence of raise left atrial pressure. 2. Mildly enlarged right ventricle with normal contractility. 3. Mild mitral and tricuspid regurgitation. 4. No significant pericardial effusion noted. Electronically signed by : Toni Woods MD 12/12/2020 13:09:01
== END ==
PROVIDERS: PCP Family Medicine; Visit Provider Internal Medicine
DX: R06.00 Dyspnea, unspecified (principal)
CPT/HCPCS: 93306

== ENCOUNTER → 2021-03-30 11:08 | Outpatient (CLI) | payer MEDICARE, SELFPAY ==
--- NOTE | 2021-03-30 11:27 | XR_ITS ---
PROCEDURE: XR CHEST 2V CLINICAL HISTORY: bilateral crackles COMPARISON: MG DMSB DIG MAMM-SCREEN SAI from 07/16/2015 CR CXR1VP XR chest portable from 05/12/[address] chest wo con from 05/13/2017 CR CXR1VP XR chest portable from 01/04/2018 CR XR CHEST 2V from 01/12/2019 FINDINGS: The cardiomediastinal silhouette and pulmonary vascularity are within normal limits. There is faint increased density overlying the right lower lung zone. This however is been a constant feature dating back to 01/04/2018 and may be due to overlying breast attenuation. Pericardial fat pad noted on the left. No lobar consolidation or collapse. Mild lower thoracic curvature convex right. Well-circumscribed oval area of decreased density noted in the left lower lung zone laterally not significantly changed. Degenerative changes of the right shoulder and thoracic and lumbar spine. IMPRESSION: No acute findings. Dictated by: Rommel Arroyo MD 03/30/2021 11:56 Rommel Arroyo MD in [facility] 03/30/2021 11:56
[2021-03-30 11:35] LABS: Basophils # 0.1 K/mm3 (0-0.2); Basophils % 0.7 % (0.1-2.0); Eosinophils # 0.1 K/mm3 (0.0-0.4); Eosinophils % 0.9 % (0.1-12.0); Hematocrit 36.3 % (37.0-47.0); Hemoglobin 11.2 g/dL (12.2-16.2); Lymphocytes # 1.9 K/mm3 (0.7-4.5); Lymphocytes % 22.2 % (10-50); Mean Corpuscular HGB Conc 30.9 g/dL (31.8-35.4); Mean Corpuscular Hemoglobin 25.9 pg (27.0-31.2); Mean Corpuscular Volume 83.7 fl (81-99); Mean Platelet Volume 8.4 fl (7.4-10.4); Monocytes # 0.5 K/mm3 (0.1-1.0); Monocytes % 5.6 % (1.7-9.3); Neutrophils % 70.7 % (37.0-80.0); Platelet Count 329 K/mm3 (142-424); Red Blood Count 4.34 M/mm3 (4.20-5.40); Red Cell Distribution Width 18.1 % (11.5-17.5); White Blood Count 8.5 K/mm3 (4.8-10.8)
[2021-03-30 14:19] LABS: Free T4 (Free Thyroxine) 0.88 ng/dl (0.78-2.19)
[2021-03-30 14:20] LABS: Chloride 96 mmol/L (98-107); Sodium 144 mmol/L (136-145)
[2021-03-30 14:22] LABS: Bilirubin,Unconjugated 0.1 mg/dL (0.0-1.1); Blood Urea Nitrogen 12 mg/dl (7-17); Estimated Glomerular Filt Rate 61 ml/min (>60); GFR (African American) 74 ML/MIN (>60)
[2021-03-30 14:23] LABS: Alanine Aminotransferase 25 U/L (12-78); Albumin Level 4.2 g/dl (3.5-5.0); Alkaline Phosphatase 82 U/L (38-126); Anion Gap 11.6 mEq/L (5-15); Aspartate Amino Transferase 64 U/L (14-36); Bilirubin,Direct 0.2 mg/dl (0.0-0.4); Bilirubin,Indirect 0.1 mg/dL (0.0-0.9); Bilirubin,Total 0.3 mg/dl (0.2-1.3); Calcium 11.8 mg/dl (8.4-10.2); Carbon Dioxide 39 mmol/L (22.0-30.0); Chol/HDL Ratio 6.9 (1-3.5); Cholesterol 199 mg/dl (140-200); Glucose 161 mg/dl (74-100); HDL Cholesterol 29 mg/dl (40-60); Total Protein,Serum 7.5 g/dl (6.3-8.2)
[2021-03-30 14:34] LABS: Direct LDL Cholesterol 86.73 mg/dL (100-129)
[2021-03-30 14:53] LABS: Thyroid Stimulating Hormone 0.49 uIU/mL (0.465-4.68)
[2021-03-30 15:02] LABS: Triglycerides 517 mg/dl (30-150)
[2021-03-30 15:04] LABS: Potassium 2.6 mmoL/L (3.5-5.1)
== END ==
PROVIDERS: Visit Provider Physician Assistant
DX: E11.69 Type 2 diabetes mellitus with other specified complication (principal); E78.5 Hyperlipidemia, unspecified; F17.209 Nicotine dependence, unspecified, with unspecified nicotine-induced disorders; I11.9 Hypertensive heart disease without heart failure; I25.10 Atherosclerotic heart disease of native coronary artery without angina pectoris; R06.00 Dyspnea, unspecified; R07.89 Other chest pain; R09.89 Other specified symptoms and signs involving the circulatory and respiratory systems; Z01.810 Encounter for preprocedural cardiovascular examination; Z79.84 Long term (current) use of oral hypoglycemic drugs
CPT/HCPCS: 36415; 71046; 80048; 80061; 80076; 84439; 84443; 85025

== ENCOUNTER → 2021-04-02 12:05 | Outpatient (CLI) | payer MEDICARE, SELFPAY ==
[2021-04-02 13:33] LABS: Chloride 94 mmol/L (98-107); Sodium 140 mmol/L (136-145)
[2021-04-02 13:36] LABS: Blood Urea Nitrogen 14 mg/dl (7-17); Estimated Glomerular Filt Rate 61 ml/min (>60); GFR (African American) 74 ML/MIN (>60)
[2021-04-02 13:37] LABS: Anion Gap 10.6 mEq/L (5-15); Calcium 10.5 mg/dl (8.4-10.2); Carbon Dioxide 38 mmol/L (22.0-30.0); Glucose 184 mg/dl (74-100)
[2021-04-02 13:43] LABS: Potassium 2.6 mmoL/L (3.5-5.1)
[2021-04-02 14:46] LABS: Magnesium 1.7 mg/dl (1.6-2.3)
== END ==
PROVIDERS: Physician Assistant; Visit Provider Nurse Practitioner Family
DX: E87.6 Hypokalemia (principal)
CPT/HCPCS: 36415; 80048; 83735

== ENCOUNTER → 2021-04-03 06:35 | Outpatient (CLI) | payer MEDICARE, SELFPAY ==
--- NOTE | 2021-04-03 06:37 | NM_ITS ---
APPROVED REPORT Exam: Nuclear Stress Test Indication: chest pain Patient Location: Outpatient Stress Tech: Luzmaria GRIFFITH Tech:Elizabeth Patterson SARBJITArsh RT(R)(N) Ht: 5 ft 1 in Wt: 172 lbs Bra Size: 38c HR: 69 bpm BP: 136/74 mmHg BSA: 1.77 m2 BMI: 32.4 Procedure: Patient received a 0.4 mg of intravenous Lexiscan, resting heart rate 69 bpm, resting blood pressure 136/74 mmHg, with Lexiscan maximum heart rate achived was 80 bpm which is Plan 85 % of the maximum predicted heart rate and blood pressure was 130/67 mmHg. With Lexiscan, patient denied any complaint of chest pain. pt unable to lay on her belly Electrocardiogram Resting electrocardiogram showed sinus rhythm, with Lexiscan there is less than 1.[address] segment depression noted from the baseline EKG. The EKG portion of the Lexiscan is nondiagnostic. Cardiac Stress and Resting SPECT Images: Cardiac Stress and Resting SPECT images were obtained using technetium 99m Myoview 31.2 mCi stress and 10.95 mCi at rest. Gated SPECT for analysis of segmental wall motion and calculation of the ejection fraction also done. Cardiac stress and resting SPECT images show uniform myocardial activity without segmental perfusion abnormality, computer derived ejection fraction is over 65% with no regional wall motion abnormality, right ventricle is normal size and contractility. Conclusion: 1. The EKG portion of the Lexiscan is nondiagnostic. 2. No scintigraphic evidence of reversible ischemia seen, computer derived ejection fraction is over 65% with no regional wall motion abnormality, right ventricle is normal size and contractility. 3. Normal Lexiscan Myoview study. Electronically signed by : Toni Woods MD 04/03/2021 15:38:51
--- NOTE | 2021-04-03 06:37 | CA_ITS ---
APPROVED REPORT Exam: Pharmacologic Technologist: Luzmaria Paz, Ht: 5 ft 2 in Wt: 172 lbs BSA: 1.79 m2 HR: 69 bpm BP: 136/74 mmHg Medical History Medical History: HTN, Smoking Medications: Lisinopril,,,,, Omeprazole,,,,, Aspirin,,,,, Allopurinol,,,,, GlYBURIDE,,,,, Plavix,,,,, DulOXETINE,,,,, Multivitamin,,,,, Potassium,,,,, Furosemide,,,,, BisOnprolol,,,,, Cardiac Risk Factors: HTN, Smoking Stress Test Details Test: LEXISCAN HR Resting HR: 73 bpm Max Heart Rate (APMHR): 147.780057 bpm Max HR Achieved: 91 bpm Target HR (85% APMHR): 124.243939 bpm % of APMHR: 61.90 Recovery HR: 83 bpm BP Resting BP: 136/74 mmHg Max BP: 136/74 mmHg Recovery BP: 130.0/67.0 mmHg ECG Clinical Exercise duration: 04:01 min Highest Stage Achieved: Stress ECG Conclusion During lexiscan pt experinced SOA with lexiscan. No CP noted. No arrthymias noted. <1.5mm ST segment changes. Test Summary RECOVERY 03:00 . . 80 . 134/ 67 . . REST 08:39 . . 73 . 136/ 74 . . Stage 1 01:00 . . 87 . . . . Stage 2 01:00 . . 89 . 126/ 65 . . Stage 3 01:00 . . 89 . 117/ 67 . . Stage 4 01:00 . . 86 . 132/ 63 . . Stage 4 01:01 . . 86 . 132/ 63 . Stop exercise at 04:01 RECOVERY 01:00 . . 84 . . . . RECOVERY 02:00 . . 83 . 130/ 67 . . RECOVERY 03:00 . . 80 . 134/ 67 . . RECOVERY 03:32 . . 81 . 131/ 65 . . Electronically signed by : Toni Woods MD 04/03/2021 15:33:07
== END ==
PROVIDERS: PCP Family Medicine; Visit Provider Physician Assistant
DX: E11.69 Type 2 diabetes mellitus with other specified complication (principal); E78.5 Hyperlipidemia, unspecified; F17.209 Nicotine dependence, unspecified, with unspecified nicotine-induced disorders; I10 Essential (primary) hypertension; I25.10 Atherosclerotic heart disease of native coronary artery without angina pectoris; R06.00 Dyspnea, unspecified; R07.89 Other chest pain; R09.89 Other specified symptoms and signs involving the circulatory and respiratory systems; Z01.810 Encounter for preprocedural cardiovascular examination
CPT/HCPCS: 78452; 93017; A9502; J2785

== ENCOUNTER 2021-04-03 16:23 | Emergency (ER) | payer MEDICARE, SELFPAY ==
[2021-04-03 17:20] VITALS: BP 116/72; PULSE 76; RESP 16; TEMP 37.1; O2SAT 95; BMI 32.5
[2021-04-03 18:00] LABS: Basophils # 0.1 K/mm3 (0-0.2); Eosinophils # 0.1 K/mm3 (0.0-0.4); Eosinophils % 0.6 % (0.1-12.0); Hematocrit 36.4 % (37.0-47.0); Hemoglobin 11.1 g/dL (12.2-16.2); Lymphocytes % 20.3 % (10-50); Mean Corpuscular HGB Conc 30.4 g/dL (31.8-35.4); Mean Corpuscular Hemoglobin 25.6 pg (27.0-31.2); Mean Platelet Volume 8.5 fl (7.4-10.4); Monocytes # 0.6 K/mm3 (0.1-1.0); Monocytes % 6.1 % (1.7-9.3); Neutrophils # 7.2 K/mm3 (1.8-7.8); Platelet Count 307 K/mm3 (142-424); Red Blood Count 4.33 M/mm3 (4.20-5.40); Red Cell Distribution Width 18.2 % (11.5-17.5)
[2021-04-03 18:09] LABS: Chloride 96 mmol/L (98-107); Sodium 141 mmol/L (136-145)
--- NOTE | 2021-04-03 18:11 | HMH.EDGENADL ---
ED Disposition Clinical Impression: Hypokalemia Disposition: Home, Self-Care Condition on Discharge: Good Instructions: DI for Hypokalemia Referrals: Rosa Hummel [Primary Care Provider] - - Critical Care Critical Care Time: No Attestation: On 04/03/21, the high probability of a clinically significant, sudden or life threatening deterioration of the following system(s) required my full and direct attention, intervention and personal management. The time I documented below is in addition to time spent performing reported procedures but includes the following listed in this critical care notation. Medical Decision Making - Medical Records Medical records reviewed: Yes: I reviewed the patient's medical records. - Antione Inquiry Pt receiving controlled substance: No Vital Signs: 04/03/21 17:20 Temperature 98.7 F Temperature Source Oral Pulse Rate [Right Radial] 76 Respiratory Rate 16 Blood Pressure [Right Arm] 116/72 Blood Pressure Mean [Right Arm] 86 Blood Pressure Source [Right Arm] Automatic Cuff Blood Pressure Position [Right Arm] Sitting 02 Sat by Pulse Oximetry 95 Oxygen Delivery Method Room Air - Lab Data Lab Results 04/03/21 17:46: WBC 10.0, RBC 4.33, Hgb 11.1 L, Hct 36.4 L, MCV 84.0, MCH 25.6 L, MCHC 30.4 L, RDW 18.2 H, Plt Count 307, MPV 8.5, Neut % (Auto) 72.0, Lymph % (Auto) 20.3, [place] % (Auto) 6.1, Eos % (Auto) 0.6, Baso % (Auto) 1.0, Neut # (Auto) 7.2, Lymph # (Auto) 2.0, [place] # (Auto) 0.6, Eos # (Auto) 0.1, Baso # (Auto) 0.1 04/03/21 17:46: Sodium 141, Potassium 2.2 L*, Chloride 96 L, Carbon Dioxide 37 H, Anion Gap 10.2, BUN 13, Creatinine 0.90, Estimated Creat Clear 62, Estimated GFR 61, Est GFR ( Amer) 74, Glucose 140 H, Calcium 10.5 H Result diagrams: 04/03/21 17:46 04/03/21 17:46 Orders (Tests/Meds): ED MEDICATIONS Generic Name Dose Route Start Last Admin Trade Name Freq PRN Reason Stop Dose Admin Potassium Chloride/Water 100 mls @ 100 mls/hr 04/03/21 18:16 04/03/21 18:34 Potassium Chloride 10meq/100ml Ivpb IV 04/03/21 20:15 100 mls/hr Q1H MARY JANE Administration Sodium Chloride 1,000 mls @ 100 mls/hr 04/03/21 18:45 04/03/21 18:46 Sod Chlor 0.9% 1000ml Bag IV 04/04/21 04:44 100 mls/hr .Q10H MARY JANE Administration Discontinued Medications Generic Name Dose Route Start Last Admin Trade Name Canq PRN Reason Stop Dose Admin Potassium Chloride 80 meq 04/03/21 18:15 04/03/21 18:34 Potassium Chloride 20meq Tab PO 04/03/21 18:16 80 meq ONCE ONE Administration - Reevaluation(s) Time: 19:07 Reevaluation #1: Patient was found to be hypokalemic with a level of 2.2. Patient has been on Lasix for quite some time. Is likely inducing her symptoms. Patient will be given both IV and oral potassium. She will need to follow-up with cardiology for medication reconciliation and Lasix. Given strict return precautions. Verbalized understanding. Medical Decision Narrative: 75-year-old female presented to emergency department with abnormal labs. The patient apparently had routine labs and was found to be hypokalemic. Patient is feeling fine overall. Hemodynamically stable. We will repeat her laboratory studies. Work-up initiated. General Adult HPI - General Chief complaint: Recheck/Abnormal Lab/Rx Stated complaint: Was told by come to ER/Labs(pot Time Seen by Provider: 04/03/21 17:25 Mode of Arrival: Ambulatory Limitations: No Limitations Description of Symptoms (Recalled from ER Triage Doc. by RN): pt reports she was called per her doctor office and directed to come to the ER r/t low potassium. Pt reports she had lab work drawn yesterday. Pt denies any vomitting - History of Present Illness HPI narrative: Is a 75-year-old female presented to the emergency department for abnormal laboratory studies. Patient states that 2 days ago she had general labs obtained by cardiology. She was notified today that her potassium was very l
[2021-04-03 18:12] LABS: Anion Gap 10.2 mEq/L (5-15); Blood Urea Nitrogen 13 mg/dl (7-17); Calcium 10.5 mg/dl (8.4-10.2); Carbon Dioxide 37 mmol/L (22.0-30.0); Creatinine Clearance Estimated 62 mL/min (50-200); Estimated Glomerular Filt Rate 61 ml/min (>60); GFR (African American) 74 ML/MIN (>60); Glucose 140 mg/dl (74-100)
[2021-04-03 18:14] LABS: Potassium 2.2 mmoL/L (3.5-5.1)
--- NOTE | 2021-04-03 18:24 | PC.NURSE ---
Janee Connelly called from lab with critical, on patient, potassium of 2.2. was repeated back and verified.
[2021-04-03 18:38] VITALS: BP 119/72; PULSE 67; RESP 22; O2SAT 96
[2021-04-03 19:01] VITALS: BP 141/77; PULSE 67; RESP 22; O2SAT 95
[2021-04-03 19:31] VITALS: BP 149/73; PULSE 72; RESP 24; O2SAT 95
[2021-04-03 20:00] VITALS: BP 143/79; PULSE 77; RESP 20; O2SAT 95
[2021-04-03 20:29] VITALS: BP 143/79; PULSE 77; RESP 18; TEMP 37.1; O2SAT 95
== END 2021-04-03 20:30 | disposition home or self-care (01) ==
PROVIDERS: Emergency Provider Emergency Medicine; PCP Family Medicine
DX: E87.6 Hypokalemia (principal); K21.9 Gastro-esophageal reflux disease without esophagitis; E78.5 Hyperlipidemia, unspecified; I10 Essential (primary) hypertension; I25.10 Atherosclerotic heart disease of native coronary artery without angina pectoris; F17.210 Nicotine dependence, cigarettes, uncomplicated
CPT/HCPCS: 78452; 80048; 85025; 93017; 96365; 96367; 99282; A9502; J2785

== ENCOUNTER → 2021-04-07 10:39 | Outpatient (CLI) | payer MEDICARE, SELFPAY ==
[2021-04-07 11:30] LABS: Anion Gap 10.7 mEq/L (5-15); Blood Urea Nitrogen 16 mg/dl (7-17); Calcium 10.4 mg/dl (8.4-10.2); Carbon Dioxide 38 mmol/L (22.0-30.0); Chloride 95 mmol/L (98-107); Estimated Glomerular Filt Rate 54 ml/min (>60); GFR (African American) 66 ML/MIN (>60); Glucose 284 mg/dl (74-100); Sodium 141 mmol/L (136-145)
[2021-04-07 11:34] LABS: Potassium 2.7 mmoL/L (3.5-5.1)
== END ==
PROVIDERS: Visit Provider Physician Assistant
DX: E87.6 Hypokalemia (principal)
CPT/HCPCS: 36415; 80048

== ENCOUNTER → 2021-04-13 10:19 | Outpatient (CLI) | payer MEDICARE, SELFPAY ==
[2021-04-13 11:47] LABS: Anion Gap 10.1 mEq/L (5-15); Blood Urea Nitrogen 18 mg/dl (7-17); Calcium 9.9 mg/dl (8.4-10.2); Carbon Dioxide 35 mmol/L (22.0-30.0); Chloride 97 mmol/L (98-107); Estimated Glomerular Filt Rate 61 ml/min (>60); GFR (African American) 74 ML/MIN (>60); Glucose 118 mg/dl (74-100); Magnesium 1.8 mg/dl (1.6-2.3); Potassium 3.1 mmoL/L (3.5-5.1); Sodium 139 mmol/L (136-145)
== END ==
PROVIDERS: Visit Provider Physician Assistant
DX: E11.69 Type 2 diabetes mellitus with other specified complication (principal); E78.5 Hyperlipidemia, unspecified; E87.6 Hypokalemia; F17.209 Nicotine dependence, unspecified, with unspecified nicotine-induced disorders; I10 Essential (primary) hypertension; I25.10 Atherosclerotic heart disease of native coronary artery without angina pectoris; R06.00 Dyspnea, unspecified; R07.9 Chest pain, unspecified; Z01.810 Encounter for preprocedural cardiovascular examination; Z79.84 Long term (current) use of oral hypoglycemic drugs
CPT/HCPCS: 36415; 80048; 83735

== ENCOUNTER → 2021-04-20 10:47 | Outpatient (CLI) | payer MEDICARE, SELFPAY | PROVIDERS: Visit Provider Physician Assistant | DX: I10 Essential (primary) hypertension (principal) | CPT/HCPCS: 36415; 80048 ==

== ENCOUNTER → 2021-04-20 12:35 | Outpatient (CLI) | payer MEDICARE, SELFPAY ==
[2021-04-20 11:06] LABS: Chloride 101 mmol/L (98-107)
[2021-04-20 11:07] LABS: Potassium 4.4 mmoL/L (3.5-5.1); Sodium 141 mmol/L (136-145)
[2021-04-20 11:09] LABS: Blood Urea Nitrogen 21 mg/dl (7-17); Estimated Glomerular Filt Rate 61 ml/min (>60); GFR (African American) 74 ML/MIN (>60)
[2021-04-20 11:10] LABS: Anion Gap 13.4 mEq/L (5-15); Carbon Dioxide 31 mmol/L (22.0-30.0); Glucose 226 mg/dl (74-100)
--- NOTE | 2021-04-20 12:36 | CT_ITS ---
PROCEDURE INFORMATION: Exam: CT Chest With Contrast; Diagnostic Exam date and time: 04/20/2021 12:36 PM Age: 75 years old Clinical indication: Other: Abn lung sounds; Additional info: Abnormal lung sounds TECHNIQUE: Imaging protocol: Diagnostic computed tomography of the chest with contrast. Radiation optimization: All CT scans at this facility use at least one of these dose optimization techniques: automated exposure control; mA and/or kV adjustment per patient size (includes targeted exams where dose is matched to clinical indication); or iterative reconstruction. Contrast material: ISOVUE; Contrast volume: 75 ml; Contrast route: IV; COMPARISON: CHESTWO CT chest wo con 05/13/2017 8:30 AM FINDINGS: Lungs: COPD, interstitial disease, and mild airspace disease. Pleural spaces: No pleural effusion. Heart: Coronary artery calcification. Aorta: Ectasia of the thoracic aorta. Lymph nodes: Subcentimeter lymph nodes. Upper abdomen: Fatty infiltration and lobulated morphology of the liver. Spleen upper limits of normal size. Gastric wall thickening. Bones/joints: Osteopenia and degenerative change. Soft tissues: Prominent mediastinal and epicardial fat. IMPRESSION: 1. COPD, interstitial disease, and mild airspace disease. 2. Additional findings as described above.
== END ==
PROVIDERS: PCP Family Medicine; Visit Provider Physician Assistant
DX: E11.69 Type 2 diabetes mellitus with other specified complication (principal); E78.5 Hyperlipidemia, unspecified; Z79.899 Other long term (current) drug therapy; I10 Essential (primary) hypertension; I25.10 Atherosclerotic heart disease of native coronary artery without angina pectoris; F17.209 Nicotine dependence, unspecified, with unspecified nicotine-induced disorders; R06.00 Dyspnea, unspecified; R07.9 Chest pain, unspecified; Z01.810 Encounter for preprocedural cardiovascular examination; Z79.84 Long term (current) use of oral hypoglycemic drugs
CPT/HCPCS: 36415; 71260; 80048; Q9967

== ENCOUNTER → 2022-10-29 11:56 | Outpatient (CLI) | payer MEDICARE, SELFPAY ==
--- NOTE | 2022-10-29 | CA_ITS ---
APPROVED REPORT Exam: Pharmacologic Technologist: Rohini Kat, Ht: 5 ft 1 in Wt: 160 lbs BSA: 1.72 m2 HR: 64 bpm BP: 124/64 mmHg Rhythm: NSR, Q-waves in inferior leads, non-specific T-wave changes in inferolateral leads Medical History Medical History: HTN, Hyperlipidemia, Smoking Medications: Omeprazole,,,,, Potassium Chloride,,,,, Aspirin,,,,, Allopurinol,,,,, GlYBURIDE,,,,, Vit D3,,,,, Plavix,,,,, DulOXETINE,,,,, BisOPROLOL Fumarate,,,,, RoSUVASTATIN,,,,, Vit D2,,,,, Furosemide,,,,, Allergies: No known drug allergies Cardiac Risk Factors: HTN, Hyperlipidemia, Smoking Stress Test Details Test: LEXISCAN HR Resting HR: 68 bpm Max Heart Rate (APMHR): 146 bpm Max HR Achieved: 82 bpm Target HR (85% APMHR): 124 bpm % of APMHR: 56 Recovery HR: 74 bpm BP Resting BP: 124/64 mmHg Max BP: 124/64 mmHg Recovery BP: 118.0/71.0 mmHg ECG Resting ECG: NSR, Q-waves in inferior leads, non-specific T-wave changes in inferolateral leads Stress ECG: No change Arrhythmia: None Recovery ECG: No change Recovery Arrhythmia: None Clinical Exercise duration: 04:04 min Highest Stage Achieved: Stress ECG Conclusion PT HAD SOA NO CP NO SIGNIFICANT ST CHANGES UNREMARKABLE LEXISCAN STRESS MYOVIEW IMAGES REPORTED SEPARATELY Test Summary REST 05:00 . . 68 . 124/ 64 . . Stage 1 01:00 . . 79 . . . . Stage 2 01:00 . . 78 . 121/ 61 . . Stage 3 01:00 . . 78 . 114/ 59 . . Stage 4 01:00 . . 74 . 123/ 65 . . Stage 4 01:04 . . 75 . 123/ 65 . Stop exercise at 04:04 RECOVERY 01:00 . . 74 . . . . RECOVERY 02:00 . . 74 . . . . RECOVERY 03:00 . . 74 . 115/ 63 . . RECOVERY 03:26 . . 72 . 118/ 71 . . Electronically signed by : Sapphire Kaplan, 11/01/2022 18:20:24
--- NOTE | 2022-10-29 11:56 | NM_ITS ---
APPROVED REPORT Exam: Nuclear Stress Test Indication: cad, 1 stent, htn, dm, hyperlipidemia, tob use, fm hx, c.p., sob, syncope Patient Location: Outpatient Stress Tech: [facility] Tech:Rossana Kearneyser, ANNE RT (R)(N)(M) Ht: 5 ft 1 in Wt: 160 lbs Bra Size: c HR: 68 bpm BP: 124/64 mmHg BSA: 1.72 m2 Rhythm: NSR TID: 1.00 BMI: 30.2 History: cad, 1 stent, htn, dm, hyperlipidemia, tob use, fm hx, c.p., sob, syncope Procedure: Patient received 0.4 mg of intravenous Lexiscan, resting heart rate 68 bpm, resting blood pressure 124/64 mmHg, with Lexiscan maximum heart rate achieved was 82 bpm which is 56 % of the maximum predicted heart rate and blood pressure was 124/64 mmHg. With Lexiscan, patient denied any complaint of chest pain. Cardiac Stress and Resting SPECT Images: Cardiac Stress and Resting SPECT images were obtained using technetium 99m Myoview 31.6 mCi stress and 10.44 mCi at rest. Resting and stress imaging in both supine and prone positions demonstrate no evidence of fixed or reversible perfusion defects. Gated imaging demonstrates a normal global and regional LV systolic function. LVEF is calculated at 60%. Conclusion: Resting and stress imaging in both supine and prone positions demonstrate no evidence of fixed or reversible perfusion defects. Gated imaging demonstrates a normal global and regional LV systolic function. LVEF is calculated at 60%. Electronically signed by : Sapphire Kaplan, 11/01/2022 18:23:07
== END ==
LOC: RAD 11:56
PROVIDERS: PCP Family Medicine; Visit Provider Nurse Practitioner Family
DX: E11.69 Type 2 diabetes mellitus with other specified complication (principal); E78.5 Hyperlipidemia, unspecified; F17.209 Nicotine dependence, unspecified, with unspecified nicotine-induced disorders; I10 Essential (primary) hypertension; I25.10 Atherosclerotic heart disease of native coronary artery without angina pectoris; I77.9 Disorder of arteries and arterioles, unspecified; R06.00 Dyspnea, unspecified; R07.89 Other chest pain; Z79.84 Long term (current) use of oral hypoglycemic drugs
CPT/HCPCS: 78452; 93017; 93306; A9502; J2785

== ENCOUNTER 2023-11-07 13:38 | Outpatient (CLI) | payer MEDICARE, SELFPAY ==
[2023-11-07 14:02] LABS: Basophils # 0.1 K/mm3 (0-0.2); Basophils % 0.6 % (0.1-2.0); Eosinophils % 0.5 % (0.1-12.0); Hematocrit 34.8 % (37.0-47.0); Hemoglobin 10.3 g/dL (12.2-16.2); Lymphocytes # 1.2 K/mm3 (0.7-4.5); Lymphocytes % 13.6 % (10-50); Mean Corpuscular HGB Conc 29.7 g/dL (31.8-35.4); Mean Corpuscular Volume 84.3 fl (81-99); Mean Platelet Volume 8.2 fl (7.4-10.4); Monocytes # 0.5 K/mm3 (0.1-1.0); Monocytes % 5.3 % (1.7-9.3); Platelet Count 333 K/mm3 (142-424); Red Blood Count 4.13 M/mm3 (4.20-5.40); Red Cell Distribution Width 17.3 % (11.5-17.5); White Blood Count 8.8 K/mm3 (4.8-10.8)
[2023-11-07 14:25] LABS: Alanine Aminotransferase 18 U/L (12-78); Albumin Level 3.5 g/dl (3.5-5.0); Alkaline Phosphatase 113 U/L (38-126); Anion Gap 7.9 mEq/L (5-15); Aspartate Amino Transferase 34 U/L (14-36); Bilirubin,Indirect 0.4 mg/dL (0.0-0.9); Bilirubin,Total 0.4 mg/dl (0.2-1.3); Bilirubin,Unconjugated 0.5 mg/dL (0.0-1.1); Blood Urea Nitrogen 14 mg/dl (7-17); Calcium 10.1 mg/dl (8.4-10.2); Carbon Dioxide 27 mmol/L (22.0-30.0); Chloride 107 mmol/L (98-107); Chol/HDL Ratio 4.2 (1-3.5); Cholesterol 144 mg/dl (140-200); Estimated Glomerular Filt Rate 61 ml/min (>60); GFR (African American) 74 ML/MIN (>60); Glucose 116 mg/dl (74-100); HDL Cholesterol 34 mg/dl (40-60); Potassium 3.9 mmoL/L (3.5-5.1); Sodium 138 mmol/L (136-145); Total Protein,Serum 7.6 g/dl (6.3-8.2); Triglycerides 212 mg/dl (30-150); VLDL Cholesterol 42 mg/dL (0-40)
[2023-11-07 14:41] LABS: Free T4 (Free Thyroxine) 0.77 ng/dl (0.78-2.19)
[2023-11-07 14:57] LABS: Thyroid Stimulating Hormone 1.43 uIU/mL (0.465-4.68)
== END 2023-11-07 23:59 | disposition home or self-care (01) ==
LOC: LAB 13:39
PROVIDERS: Visit Provider Nurse Practitioner
DX: K21.9 Gastro-esophageal reflux disease without esophagitis (principal); I77.9 Disorder of arteries and arterioles, unspecified; I10 Essential (primary) hypertension; R06.00 Dyspnea, unspecified; E11.69 Type 2 diabetes mellitus with other specified complication; E78.5 Hyperlipidemia, unspecified; I51.9 Heart disease, unspecified; F17.209 Nicotine dependence, unspecified, with unspecified nicotine-induced disorders; I25.10 Atherosclerotic heart disease of native coronary artery without angina pectoris
CPT/HCPCS: 80048; 80061; 80076; 84439; 84443; 85025